=== PATIENT | female | born 1970 | race Caucasian/White ===

== ENCOUNTER 2024-04-26 08:50 | Emergency (ER) | payer OTHER ==
[~2024-04-26] VITALS: Ht 162.6 cm; Wt 66.0 kg
[2024-04-26 08:57] VITALS: BP 150/77
[2024-04-26 09:00] VITALS: BP 142/78
[2024-04-26] MEDS ORDERED: ZYRTEC ALLGY10 M1 PO (09:08)
[2024-04-26] MEDS ORDERED: PREDNISONE50 MG PO (09:08)
[2024-04-26] MEDS ORDERED: methylPREDNISolone SODIUM SUCC 125 MG/2 ML SDV IM ONE (09:10)
[2024-04-26 09:24] VITALS: BP 134/80
[2024-04-26 09:30] VITALS: BP 139/80
[2024-04-26 09:40] VITALS: BP 142/70
[2024-04-26 09:50] VITALS: BP 151/80
== END 2024-04-26 09:48 | disposition home or self-care (01) | DRG 607 ==
LOC: ED 08:50
DX: L23.7 Allergic contact dermatitis due to plants, except food (principal); I10 Essential (primary) hypertension

== ENCOUNTER 2024-05-04 16:16 | Emergency (ER) | payer OTHER ==
[~2024-05-04] VITALS: Ht 162.6 cm; Wt 77.1 kg
[2024-05-04] VITALS (8 sets, daily range): BP systolic 117–135; BP diastolic 69–75
[~2024-05-04 16:16] MED LIST: PREDNISONE50 MG PO; ZYRTEC ALLGY10 M1 PO
[2024-05-04] MEDS ORDERED: ONDANSETRON HCl 4 MG/2 ML SDV IV ONE (17:00)
[2024-05-04] MEDS ORDERED: MORPHINE SULFATE 4 MG/ML VIAL IV ONE (17:00)
[2024-05-04] MEDS ORDERED: SODIUM CHLORIDE 0.9% 1,000 ML IV ONE (17:00)
[2024-05-04] MEDS ORDERED: KETOROLAC TROMETHAMINE 30 MG/ML SDV IV ONE (17:00)
[2024-05-04 17:04] LABS: URINE BILIRUBIN - DIPSTICK Negative (NEGATIVE); URINE BLOOD DIPSTICK Negative (NEGATIVE); URINE GLUCOSE - DIPSTICK Negative (NEGATIVE); URINE KETONE Negative (NEGATIVE); URINE LEUK ESTERASE Negative (NEGATIVE); URINE NITRITE - DIPSTICK Negative (Negative); URINE PROTEIN - DIPSTICK Negative (NEG-TRACE); URINE SPECIFIC GRAVITY 1.025; URINE UROBILINOGEN - DIPSTICK 0.2 E.U./dL (0.2)
[2024-05-04 17:04] LABS: BASO% 0.1 % (0-3); EOS% 1.5 % (0-8); HEMATOCRIT 40.3 % (37.0-47.0); HEMOGLOBIN 13.2 g/dl (12.0-16.0); IMMATURE GRANULOCYTES 0.6 % (0.0-5.0); LYMPH% 22.3 % (15-41); MEAN CORPUSCULAR HGB 30.1 pG CALC (26.0-32.0); MEAN CORPUSCULAR HGB CONC 32.8 g/dL CAL (32.0-36.0); NEUT# 9.06 thou/uL (2.00-7.15); NEUT% 66.5 % (42-76); RED BLOOD COUNT 4.38 mill/uL (4.20-5.60); RED CELL DISTRI WIDTH 12.7 % (11.5-15.5)
[2024-05-04 17:05] LABS: URINE COLOR Yellow
[2024-05-04 17:18] LABS: ALBUMIN 4.2 g/dL (3.2-5.0); BILIRUBIN, TOTAL 0.8 mg/dL (0.02-1.3); CREATININE 0.9 mg/dL (0.5-1.0); POTASSIUM 4.4 mmol/l (3.5-5.1); TOTAL PROTEIN 7.5 g/dL (6.3-8.2)
[2024-05-04] MEDS ORDERED: METHOCARBAMOL 1,000 MG/10 ML VIAL IV ONE (18:25)
[2024-05-04] MEDS ORDERED: PREDNISONE10 MG PO (18:30)
[2024-05-04] MEDS ORDERED: LORTAB 5/3255 MG PO (18:30)
[2024-05-04] MEDS ORDERED: CYCLOBENZAPRINE10 MG PO (18:30)
[2024-05-04] MEDS ORDERED: NAPROXEN500 MG PO (18:30)
[2024-05-04] MEDS ORDERED: DEXAMETHASONE SOD. PHOSPHATE 10 MG/ML VIAL IV ONE (18:35)
== END 2024-05-04 19:52 | disposition home or self-care (01) | DRG 552 ==
LOC: ED 16:16
PROVIDERS: Nurse Practitioner
DX: M54.42 Lumbago with sciatica, left side (principal); R10.9 Unspecified abdominal pain; K50.90 Crohn's disease, unspecified, without complications; R16.0 Hepatomegaly, not elsewhere classified; N20.0 Calculus of kidney; I10 Essential (primary) hypertension; Z87.442 Personal history of urinary calculi; Z91.041 Radiographic dye allergy status; Z90.49 Acquired absence of other specified parts of digestive tract